=== PATIENT | male | born 1995 | race African-American/Black ===

== ENCOUNTER 2016-10-31 12:23 | Emergency (ER) | payer OTHER ==
--- NOTE | ~2016-10-31 | ER ---
PATIENT'S NAME: YESSI LAIRD [facility] AGE: 20 Y [address] ROOM: [place] [id number] LOCATION: [facility] ADMIT DATE: 10/31/2016 ER/Outpatient Report DISCHARGE DATE: 10/31/2016 FAMILY PHYSICIAN: PHYSICIAN, NO ATTENDING PHYSICIAN: Herman Reynoso Time of Arrival: 1230 hours. Time of Exam: 1230 hours. CHIEF COMPLAINT: Hand laceration. HISTORY OF PRESENT ILLNESS: The patient states approximately 40 minutes prior to arrival, he was cutting up broccoli at work. He works at [employer], and the knife slipped and ended up cutting himself in the web of the left hand between the thumb and index finger. Denies any other injury. Denies any numbness or tingling of his finger. He states he is able to move his finger. ALLERGIES: NO KNOWN ALLERGIES. MEDICATIONS: No current medications. PAST MEDICAL HISTORY: Benign. PAST SURGERIES: He has had a hernia repair in 2010. SOCIAL HISTORY: He denies use of drugs, alcohol, or tobacco. He states his last tetanus was in 2012. REVIEW OF SYSTEMS: All negative other than those mentioned in the HPI. PHYSICAL EXAMINATION: VITAL SIGNS: He states he is 5 feet 11 inches. He weighed 90.9 kg. Blood pressure is 116/58; pulse is 78; respirations 20; temperature of 97.1, tympanic; O2 saturations 100% on room air. GENERAL: He is awake, alert, and oriented x4. SKIN: [place], warm, and dry. PATIENT'S NAME: YESSI LAIRD [facility] AGE: 20 Y [address] ROOM: [place] [id number] LOCATION: [facility] ADMIT DATE: 10/31/2016 ER/Outpatient Report DISCHARGE DATE: 10/31/2016 FAMILY PHYSICIAN: PHYSICIAN, NO ATTENDING PHYSICIAN: Herman Reynoso RESPIRATIONS: Even and nonlabored. Lung sounds were clear throughout. HEART: Regular rate and rhythm. EXTREMITIES: The patient has a 1.5 cm laceration to the web between the thumb and index finger on the left. The area was cleansed well with saline, anesthetized with 1% plain Xylocaine and closed with 4-0 Ethilon x3 stitches. The patient tolerated the procedure well. IMPRESSION: Laceration with simple repair. PLAN: Home, rest. Tylenol or ibuprofen as needed. Follow up with primary provider in 5-7 days to have stitches removed, sooner if any signs of infection. The patient verbalized understanding. GALLO ABARCA APRN FOR MD CARINA WINTERS/parveen /[id number] d: 10/31/168 t: 11/07/16 0647, OUTPATIENT REPORT
== END 2016-10-31 12:57 | disposition disaster alternative care site (69) ==
LOC: GACC 12:23
PROC: 0HQGXZZ Repair Left Hand Skin, External Approach (ICD-10-PCS; principal; 2016-10-31)
DX: S61.422A Laceration with foreign body of left hand, initial encounter (principal); W26.0XXA Contact with knife, initial encounter